=== PATIENT | male | born 1955 | race Caucasian/White ===

== ENCOUNTER 2016-11-07 01:33 | Emergency (ER) | payer OTHER ==
[2016-11-07 01:45] VITALS: RESP 16
[2016-11-07] MEDS ORDERED: TDAP ADULT 0.5 ML INJ (BOOSTRIX) IM ONE (03:02)
--- NOTE | 2016-11-07 03:02 | EDPHY ---
H & P Stated Complaint: c/o pain in L wrist after falling while running yesterday Time Seen by Provider: 11/07/16 02:46 HPI/ROS: HPI The patient presents with left wrist pain which occurred after a fall while running on the trail about 12 hours ago. He fell onto an outstretched her wrist and has had pain ever since. The pain is sharp, does not radiate, is moderate in severity. He was not able to sleep tonight so he comes into the emergency room.. REVIEW OF SYSTEMS Constitutional: No fever, no chills. Musculoskeletal: No back pain. Skin: No rashes. Neurological: No headache. PMHx: Healthy PHYSICAL General Appearance: Alert, no distress Eyes: Pupils equal and round no pallor or injection ENT, Mouth: Mucous membranes moist Respiratory: There are no retractions, lungs are clear to auscultation Cardiovascular: Regular rate and rhythm Gastrointestinal: Abdomen is soft and non-tender, no masses, bowel sounds normal Neurological: A&O, moves all extremities Skin: Warm and dry, no rashes Musculoskeletal: Left wrist is slightly tender to palpation overlying the distal radius, he has full range of motion of the wrist, he has no tenderness throughout the bones of his hand, he has 2+ radial pulses with full range of motion of his fingers, there is an abrasion to his right elbow Extremities: symmetrical, full range of motion Psychiatric: Patient is oriented X 3, there is no agitation Source: Patient Exam Limitations: No limitations - Medical/Surgical History Hx Asthma: No Hx Chronic Respiratory Disease: No Hx Diabetes: No Hx Cardiac Disease: Yes Hx Renal Disease: No Hx Cirrhosis: No Hx Alcoholism: No Hx HIV/AIDS: No Hx Splenectomy or Spleen Trauma: No Other PMH: hyperlipidemia, tonsillectomy - Social History Smoking Status: Never smoked Constitutional: Initial Vital Signs Temperature (C) 36.5 C 11/07/16 01:37 Heart Rate 58 L 11/07/16 01:37 Respiratory Rate 16 11/07/16 01:37 Blood Pressure 134/93 H 11/07/16 01:37 O2 Sat (%) 98 11/07/16 01:37 O2 Delivery Mode Room Air Allergies/Adverse Reactions: winter squash Allergy (Uncoded 11/07/16 01:41) Home Medications: Medication Instructions Recorded Aspirin 81mg (*) 11/07/16 Pravastatin Sodium 11/07/16 Medical Decision Making - Diagnostics Imaging Results: Left wrist x-ray three views shows no obvious fracture, no dislocation, interpreted by me, radiology interpretation is pending. Imaging: Discussed imaging studies w/ train caller Radiologist, I viewed and interpreted images myself Differential Diagnosis: This is a 61-year-old man who presents after a fall while running on the trail now complaining of left wrist pain. On exam, he is neurovascularly intact, he does have tenderness of the distal radius, however his x-ray does not reveal any acute fracture. He does have a history of prior distal radius fracture as a child. I plan to place him in a wrist splint with follow up with Orthopedics unless he is better in the next 1-2 days. He is in agreement with this plan. Differential diagnoses considered include Colles fracture, wrist sprain, hand sprain. - Data Points Medications Given: Discontinued Medications Diphtheria/Tetanus/Acell Pertussis (Boostrix) 0.5 ml IM .ONCE ONE Stop: 11/07/16 03:03 Last Admin: 11/07/16 03:15 Dose: 0.5 ml Departure - Departure Disposition: Home, Routine, Self-Care Clinical Impression: Left wrist injury Qualifiers: Encounter type: initial encounter Qualified Code(s): S69.92XA - Unspecified injury of left wrist, hand and finger(s), initial encounter Condition: Good Instructions: Wrist Injury (ED) Additional Instructions: Please keep the splint on to help with your wrist pain. You should return to the emergency room if your feeling worse in any way. Please use ice, ibuprofen and Tylenol as needed for pain. There may be a small fracture that we cannot see on the x-ray. Thus, I would like you to follow up with the hand specialist to have listed below for a follow -up appointment for repeat x-rays. We will call you with the radiologist notices a fracture that I did not see tonight. Referrals: Toma Spangler MD [Primary Care Provider] - As per Instructions Ricci Valero MD [Medical Doctor] - As per Instructions
[2016-11-07 03:17] VITALS: BP 132/76; PULSE 74; TEMP 97.9; O2SAT 96
== END 2016-11-07 03:17 | disposition home or self-care (01) ==
DX: S69.92XA Unspecified injury of left wrist, hand and finger(s), initial encounter (principal); Z23 Encounter for immunization; W18.39XA Other fall on same level, initial encounter; Y93.02 Activity, running
CPT/HCPCS: L3807

== ENCOUNTER 2016-12-04 17:33 | Emergency (ER) | payer OTHER ==
[2016-12-04 17:59] VITALS: BP 149/86; PULSE 62; RESP 20; TEMP 98.4; O2SAT 97
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
== END 2016-12-04 19:25 | disposition home or self-care (01) ==
DX: S09.90XA Unspecified injury of head, initial encounter (principal); V43.52XA Car driver injured in collision with other type car in traffic accident, initial encounter; Y92.410 Unspecified street and highway as the place of occurrence of the external cause